=== PATIENT | male | born 2000 | race Caucasian/White ===

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

== ENCOUNTER 2021-03-29 16:53 | Observation (INO) | payer OTHER, SELFPAY ==
--- NOTE | ~2021-03-29 | CT_ITS ---
EXAMINATION: CT abdomen pelvis w con DATE: 03/29/2021 19:21 INDICATION: Right abdominal pain. Nausea and vomiting. Diarrhea. TECHNIQUE: Computed tomography (CT) of the abdomen and pelvis was performed with 100 mL Omnipaque 350 intravenous contrast. Automated exposure control and iterative reconstruction technique were employe d. The dose-length product was 190.28 mGy-cm. COMPARISON: CT abdomen and pelvis 09/12/2020, 03/29/2021 FINDINGS: The visualized portions of the lung bases are clear without pneumonia or pleural effusion. The heart size is normal. No pericardial effusion. The liver, gallbladder, spleen, pancreas, adrenal glands, and right kidney are normal. There is a 13 mm cyst in left kidney. There is a ventriculoperit phillip shunt with tip in right pelvis. There are no dilated loops of bowel. The appendix is not visual ized. There is a small volume of pelvic ascites. There are no pathologically enlarged lymph nodes. Th ere is mild chronic anterior wedging of T12 and L1 vertebral bodies. IMPRESSION: 1. Small volume of pelvic ascites. Reviewed, dictated and finalized at location E. UCT DEVELOPMENT CONSULTANT
--- NOTE | ~2021-03-29 | CT_ITS ---
EXAMINATION: CT abdomen pelvis wo con DATE: 03/29/2021 17:53 INDICATION: Right-sided abdominal pain with nausea and vomiting and diarrhea for 2 days TECHNIQUE: Computed tomography (CT) of the abdomen and pelvis was performed without intravenous contr ast. Automated exposure control and iterative reconstruction technique were employed. Exam dose: 206 .68 mGy-cm total exam DLP. COMPARISON: 09/12/2020 CT abdomen pelvis FINDINGS: The lung bases are clear. Normal heart size. No pericardial or pleural effusion. A ventriculoperitoneal shunt catheter courses along the right parasagittal anterior chest wall and ri ght anterior abdomen, terminating in the right pelvic area. The liver, spleen, pancreas, and adrenal glands and kidneys appear unremarkable other than approximat jona 1.4 cm left renal cyst. No bile duct or pancreatic duct dilatation. No urinary tract calculus or hydroureteronephrosis. Normal caliber of the abdominal aorta. No intraperitoneal or retroperitoneal or pelvic mass lesion or adenopathy. There is stable mild/moderate free fluid in the dependent pelvis, likely related to the shunt. There are small bowel air-fluid levels without abnormal small bowel dilatation thickening of the wall . No bowel obstruction or intraperitoneal free air is detected. Consider enteritis or adynamic ileus. The appendix is not definitively localized. No abscess is evident. Skeletal structures are unremarkable other than some changes of the thoracolumbar spine likely relate d to Scheuermann's disease. IMPRESSION: Nonspecific fluid-containing small bowel and small bowel air-fluid levels without obstru ction or free air; consider enteritis, adynamic ileus. The appendix is not definitively localized. Cl inical correlation is advised Ventriculoperitoneal shunt with stable mild to moderate fluid collection in the dependent pelvis 1.4 cm left renal cyst Reviewed, dictated and finalized at Location [facility]. Reviewed, dictated and finalized at location A. LOPMENT REPRESENTATIVE IMPRESSION: Nonspecific fluid-containing small bowel and small bowel air-fluid levels without obstruction or free air; consider enteritis, adynamic ileus. Th e appendix is not definitively localized. Clinical correlation is advised Ventriculoperitoneal shunt with stable mild to moderate fluid collection in the dependent pelvis 1.4 cm left renal cyst
[2021-03-29 17:30] VITALS: BP 106/77; PULSE 99; RESP 16; TEMP 36.6; O2SAT 99
--- NOTE | 2021-03-29 17:40 | ECG_ITS ---
Measurements Intervals Ewing Rate: 78 P: 61 GA: 96 QRS: 34 QRSD: 87 T: 55 QT: 379 QTc: 433 Interpretive Statements SINUS RHYTHM WITH SHORT GA INTERVAL MINIMAL Q WAVES- ANTEROLAT/HIGH LAT LEADS BASELINE ARTIFACT- I, II, AVR, AVL, V1-V2, V4, V6 BORDERLINE ECG Electronically Signed On 03-29-2021 20:39:23 TELEVISION NEWS REPORTER by Andrew Mcdaniel D.O.
[2021-03-29] MEDS: ONDANSETRON INJ 4 MG/2 ML VIAL IV PUSH (18:00)
[2021-03-29 18:20] LABS: Hematocrit 48.2 % (40.0-54.0); Hemoglobin 16.9 g/dL (14.0-18.0); Mean Corpuscular HGB Conc 35.1 g/dL (32.0-36.0); Mean Corpuscular Hemoglobin 29.8 pg (27.0-31.0); Mean Platelet Volume 9.1 fl (8.7-11.0); Platelet Count Result 326 K/mm3 (150-420); Red Blood Count 5.67 M/mm3 (4.70-6.10); Red Cell Distribution Width 11.9 % (11.6-14.4)
[2021-03-29 18:40] LABS: Alanine Aminotransferase 24 U/L (16-63); Albumin Level 4.4 g/dL (3.4-5.0); Alkaline Phosphatase 111 U/L (46-116); Anion Gap 9 mmol/L (8-16); Aspartate Amino Transferase 12 U/L (15-37); Bilirubin,Total 0.5 mg/dL (0.00-1.00); Blood Urea Nitrogen 17 mg/dL (7-18); Carbon Dioxide 31 mmol/L (21-32); Chloride 100 mmol/L (98-108); Estimated CRCL calculation 77 ml/min; Estimated Glomerular Filt Rate > 60; Glucose 98 mg/dL (70-99); Lipase 51 U/L (73-393); Osmolality Calculated 291 mOsm/kg (285-295); Potassium 3.5 mmol/L (3.5-5.1); Sodium 140 mmol/L (136-145)
--- NOTE | 2021-03-29 18:52 | ED.ABDPAIN ---
HPI - Abdominal Pain General Chief Complaint: Abdominal Pain Stated Complaint: vomiting,fatigue,loss of appitite,rt side pain Time Seen by Provider: 03/29/21 17:52 Source: patient Mode of arrival: ambulatory Limitations: no limitations History of Present Illness MD elicited complaint: abdominal pain Pertinent past history: none Onset (ago): hour(s) Pain Consistency: intermittent Location: diffuse Severity: mild Quality: cramping and aching Radiation: none Migration to: no migration Exacerbating factors: vomiting Related Data Home Medications Medication Instructions Recorded Confirmed No Home Medications 03/29/21 03/29/21 Allergies Allergy/AdvReac Type Severity Reaction Status Date / Time No Known Allergies Allergy Verified 03/29/21 17:41 Review of Systems Review of Systems: All systems reviewed & are unremarkable except as noted in HPI and below PMFSH Past Medical History Medical History Hydrocephalus Surgical History Surgical History History of ventriculoperitoneal shunting Family History Family History Other No significant family history Social History Social History Smoking status: Never smoker Alcohol intake: never Substance use: never Gender identity (if verbalized by the patient): Male Exam Const: General: no acute distress and alert Orientation/consciousness: patient oriented x3 HENMT: Head: normal to inspection Eyes: Conjunctivae: conjunctivae normal Pupils: Equal, round and reactive pupils present Neck: Neck: normal visual inspection, no lymphadenopathy and no meningeal signs Chest: Chest palpation & inspection: normal inspection of the chest Resp: Effort & Inspection: normal respiratory effort Cardio: Rate: regular rate Rhythm: regular rhythm GI: GI Palp: Yes Soft to palpation and Yes Tenderness to palpation present (GI) Percussion: Yes normal to percussion Urinary Catheter: Urinary Catheter: patent and draining Skin: General skin exam: normal color Rashes: no rashes Neuro: General: patient oriented x3 Extrem: General: normal to inspection and no pedal edema Psych: Mental Status: mental status grossly normal Affect: normal affect Course Course Emergency Course: CT scan reviewed and ordered CT scan abdomen pelvis with contrast patient receiving IV fluids Vital Signs Vital signs: Vital Signs Temperature 36.6 C 03/29/21 17:30 Pulse Rate 99 03/29/21 17:30 Respiratory Rate 16 03/29/21 17:30 Blood Pressure 106/77 03/29/21 17:30 Pulse Oximetry 99 03/29/21 17:30 Temperature 36.6 C 03/29/21 17:30 Pulse Rate 99 03/29/21 17:30 Respiratory Rate 16 03/29/21 17:30 Blood Pressure 106/77 03/29/21 17:30 Pulse Oximetry 99 03/29/21 17:30 MDM - Abdominal Pain Lab Data Result diagrams: 03/29/21 18:09 03/29/21 18:09 Labs: Lab Results 03/29/21 03/29/21 03/29/21 Range/Units 18:09 18:09 18:09 WBC 7.0 (4.8-10.8) K/mm3 RBC 5.67 (4.70-6.10) M/mm3 Hgb 16.9 (14.0-18.0) g/dL Hct 48.2 (40.0-54.0) % MCV 85.0 (78.0-102.0) fL MCH 29.8 (27.0-31.0) pg MCHC 35.1 (32.0-36.0) g/dL RDW 11.9 (11.6-14.4) % Plt Count 326 (150-420) K/mm3 MPV 9.1 (8.7-11.0) fl Immature Gran % (Auto) Not Reportable Neut % (Auto) Not Reportable Lymph % (Auto) Not Reportable [place] % (Auto) Not Reportable Eos % (Auto) Not Reportable Baso % (Auto) Not Reportable Lymph # (Auto) Not Reportable [place] # (Auto) Not Reportable Eos # (Auto) Not Reportable Baso # (Auto) Not Reportable Abs Immat Gran (auto) Not Reportable Absolute Neuts (auto) Not Reportable Absolute Nucleated RBC Not Reportable Nucl
[2021-03-29 19:15] LABS: Band Neutrophils Percent 0 % (0-6); Lymphocytes Absolute Manual 1.47 K/mm3 (1.1-4.5); Lymphocytes Percent Manual 21 % (18-44); Monocytes Absolute Manual 1.33 K/mm3 (0.1-0.90); Monocytes Percent Manual 19 % (3-9); Neutrophils Absolute Manual 4.13 K/mm3 (1.3-6.7); Neutrophils Percent Manual 59 % (46-73)
[2021-03-29 19:16] LABS: Basophils Percent Manual 0 % (0-1); Eosinophils Absolute Manual 0.07 K/mm3 (0.02-0.5); Eosinophils Percent Manual 1 % (1-6); Platelet Estimate Adequate (Adequate)
[2021-03-29] MEDS: MORPHINE SULFATE (*CRX) 2 MG/ML INJ IV PUSH (19:25)
[2021-03-29] MEDS: CIPROFLOXACIN 400 MG/D5W 200ML 200 ML 200 MG IVPB (20:16)
--- NOTE | 2021-03-29 20:42 | PC.NURSE ---
patient's belongings list updated.
[2021-03-29] MEDS: metroNIDAZOLE 500 MG/ISO 100ML 500 MG/100 ML BAG 100 MG IVPB (20:50)
[2021-03-29] MEDS: SODIUM CHLORIDE 0.9% IV 1,000 ML 100 ML IV CONT (22:12)
--- NOTE | 2021-03-29 23:45 | ADMGEN ---
This patient, Zaki Byrd, was admitted to 2nd Floor Room 227-2. Patient/family oriented to hospital policies and general routines including ID bracelet, bed and alarms, pain management, procedures, bathroom and other care routines, personal items, smoking policy, room service/diet, and visiting hours. Information on how to activate the Rapid Response Team has been discussed. Patient/Family are encouraged to report perceived risks to care and to ask questions if they do not understand what they are told or what they should do.
[2021-03-29 23:48] VITALS: BMI 15.9
[2021-03-30] VITALS: BP 115/64; PULSE 65; RESP 18; TEMP 36.7; O2SAT 98
[2021-03-30] MEDS: METOCLOPRAMIDE HCL INJ 10 MG/2 ML VIAL 5 MG IV PUSH ×2 (00:14→06:46)
[2021-03-30] MEDS: MORPHINE SULFATE (*CRX) 2 MG/ML INJ IV PUSH (04:36)
[2021-03-30 05:14] LABS: Hematocrit 41.9 % (40.0-54.0); Hemoglobin 14.4 g/dL (14.0-18.0); Mean Corpuscular HGB Conc 34.4 g/dL (32.0-36.0); Mean Corpuscular Hemoglobin 29.3 pg (27.0-31.0); Mean Corpuscular Volume 85.2 fL (78.0-102.0); Mean Platelet Volume 9.6 fl (8.7-11.0); Platelet Count Result 280 K/mm3 (150-420); Red Blood Count 4.92 M/mm3 (4.70-6.10); Red Cell Distribution Width 11.9 % (11.6-14.4); White Blood Count 7.3 K/mm3 (4.8-10.8)
[2021-03-30 05:34] LABS: Alanine Aminotransferase 19 U/L (16-63); Albumin Level 3.6 g/dL (3.4-5.0); Alkaline Phosphatase 89 U/L (46-116); Anion Gap 9 mmol/L (8-16); Aspartate Amino Transferase < 10 U/L (15-37); Bilirubin,Total 0.4 mg/dL (0.00-1.00); Blood Urea Nitrogen 15 mg/dL (7-18); CRP < 0.5 mg/dL (0.0-0.9); Calcium 8.5 mg/dL (8.5-10.1); Carbon Dioxide 29 mmol/L (21-32); Chloride 105 mmol/L (98-108); Estimated CRCL calculation 76 ml/min; Estimated Glomerular Filt Rate > 60; Glucose 93 mg/dL (70-99); Magnesium 1.9 mg/dL (1.8-2.4); Osmolality Calculated 296 mOsm/kg (285-295); Potassium 3.3 mmol/L (3.5-5.1); Sodium 143 mmol/L (136-145); Total Protein 6.7 g/dL (6.4-8.2)
--- NOTE | 2021-03-30 06:56 | PM.SD2 ---
Same Day Admit/Disch: HPI History of Present Illness Chief complaint: Enteritis, Abd pain Narrative: Zaki Byrd is a 21 year old male that presented to our emergency department with plaints of nausea vomiting and diarrhea. He has a history of History of ventriculoperitoneal shunting and hydrocephalus. According to patient 2 days ago he developed nausea vomiting and diarrhea and notes that he looked on the Internet and thought that his symptoms matched appendicitis. Patient notes that the only thing he did was drink soda relieve his symptoms. Vital signs 113/70, 100, 16, 97.7, 100% on room air, WBC 7.0, hemoglobin 16.9, hematocrit 48.2, platelets 326, sodium 140, potassium 3.5, BUN 17, creatinine 1.00, glucose 98, lactic acid 1.0, magnesium 1.9, AST 12, ALT 24, CRP within normal limits,Ventriculoperitoneal shunt with stable mild to moderate fluid collection in the dependent pelvis, 1.4 cm left renal cyst and Nonspecific fluid-containing small bowel and small bowel air-fluid levels without obstruction or free air patient was admitted for enteritis. Patient denies any recent antibiotic use and his diarrhea has subsided he will discharge home today with antibiotic with the Flagyl , Imodium and Zofran. The patient denies SOB, CP, palpitation, extremity numbness, lightheadedness, dizziness, constipation, diarrhea, chills, or fever. PMFSH Past Medical History Medical History Hydrocephalus Surgical History Surgical History History of ventriculoperitoneal shunting Family History Family History Other No significant family history Social History Social History Smoking status: Never smoker Second hand tobacco smoke exposure: No Alcohol intake: never Substance use: never Substance use type: does not use Gender identity (if verbalized by the patient): Male Spiritual care concerns: No Same Day Admit/Disch: Med Pre-admit Medications Home Medications Medication Instructions Recorded Confirmed Type No Home Medications 03/29/21 03/29/21 History ciprofloxacin HCl [Cipro] 500 mg PO Q12H 7 Days #14 tablet 03/29/21 Rx loperamide [Imodium A-D] 2 mg PO Q6H PRN #30 tablet 03/29/21 Rx metoclopramide HCl [Reglan] 5 mg PO DAILY 28 Days #28 tablet 03/29/21 Rx metronidazole 500 mg PO Q12H 7 Days #14 tablet 03/29/21 Rx ondansetron HCl 4 mg PO Q6H PRN #30 tablet 03/29/21 Rx Exam Narrative: GENERAL: This is a well-nourished, well-developed patient, in no apparent distress. HEAD: normocephalic, atraumatic. EYES: PERRL. Sclera clear/white. Vision is grossly intact. EARS: External ears normal, auditory canals clear and without drainage, TMs normal without perforation. Hearing grossly intact. NOSE: External nose normal with no obvious nasal discharge, nares without redness, no rhinorrhea. THROAT: Mucous membranes moist, posterior pharynx clear. NECK: Neck supple, non-tender without lymphadenopathy, masses or thyromegaly. CARDIOVASCULAR: Regular rate and rhythm without murmurs, gallops, or rubs. RESPIRATORY: Clear to auscultation. Breath sounds equal bilaterally. No wheezes, rales, or rhonchi. GASTROINTESTINAL: Abdomen soft, generalized tender, nondistended. Bowel sounds are active. No hepato-splenomegaly, or palpable masses. No guarding. SKIN: warm, intact with no suspicious lesions or rash, good texture and turgor. NEURO: awake, alert, and oriented to person, place and time. There were no obvious focal neurologic abnormalities. Steady gait EXTREMITIES: Normal range of motion. No edema. No calf tenderness. Negative Homans sign bilaterally. BACK: Nontender without deformity or crepitance. No flank tenderness. DS: Data Data Completed and Pending Labs on day of discharge: Labs from last 24 hours 03/30/21 02
[2021-03-30 08:00] VITALS: BP 113/70; PULSE 100; RESP 16; TEMP 36.5; O2SAT 100
[2021-03-30] MEDS: SODIUM CHLORIDE 0.9% IV 1,000 ML 100 ML IV CONT (08:31)
[2021-03-30] MEDS: metroNIDAZOLE 500 MG/ISO 100ML 500 MG/100 ML BAG 100 MG IVPB (09:12)
[2021-03-30] MEDS: PANTOPRAZOLE SODIUM IV 40 MG VIAL IV PUSH (09:16)
--- NOTE | 2021-03-30 10:55 | PC.NURSE ---
Patient discharged and left [facility] at 1055. Tripe Cooker went over discharge instructions with patient. Patient voiced understanding. All personal belongings sent with patient. Patient transported to [facility] via w/c with music writer assist. Prescriptions transmitted to pharmacy and patient aware of need to pick them up.
--- NOTE | 2021-04-02 15:37 | PC.NURSE ---
Pt states he received and understood his discharge instructions. Pt also states His care was excellent .
== END 2021-03-30 10:55 | disposition home or self-care (01) ==
LOC: CHSED 19:38 → CHS2ND 21:03
PROVIDERS: Nurse Practitioner; Admitting Provider Emergency Medicine; Emergency Provider Emergency Medicine; PCP Family Medicine; Visit Provider Emergency Medicine
DX: K52.9 Noninfective gastroenteritis and colitis, unspecified (principal); E87.6 Hypokalemia; G91.9 Hydrocephalus, unspecified; N28.1 Cyst of kidney, acquired; Z98.2 Presence of cerebrospinal fluid drainage device
CPT/HCPCS: 36415; 74176; 74177; 80053; 83605; 83690; 83735; 85025; 85027; 86140; 93005; 96361; 96365; 96366; 96367; 96375; 96376; 99285; C9113; G0378; G0379; J0744; J2270; J2405; J2765; J7030; Q9967

== ENCOUNTER 2021-04-06 09:45 | Outpatient (CLI) | payer OTHER, SELFPAY ==
[2021-04-06 10:16] LABS: SARS-CoV-2 Ag Negative (Negative)
== END 2021-04-06 09:46 | disposition home or self-care (01) ==
LOC: CHSLAB 09:47
PROVIDERS: PCP Family Medicine; Visit Provider Family Medicine
DX: R05.9 Cough, unspecified (principal); R19.7 Diarrhea, unspecified; Z20.822 Contact with and (suspected) exposure to COVID-19
CPT/HCPCS: 87426; C9803

== ENCOUNTER 2021-05-02 09:30 | Emergency (ER) | payer OTHER, SELFPAY ==
--- NOTE | ~2021-05-02 | XR_ITS ---
EXAMINATION: XR chest 1V portable 05/02/2021 09:55 INDICATION: Chest pain PROCEDURE: AP portable chest COMPARISON: 05/15/2020 FINDINGS: The lungs are clear. The cardiomediastinal silhouette is within normal limits. There are no pleural effusions. There is no pneumothorax suspected. There is a right-sided ventriculoperitone al shunt. IMPRESSION: 1: NO ACUTE CARDIOPULMONARY DISEASE. Reviewed, dictated and finalized at location B.
[2021-05-02 09:30] VITALS: BP 118/66; PULSE 109; RESP 18; TEMP 36.2; O2SAT 97
[2021-05-02 09:35] VITALS: PULSE 109
--- NOTE | 2021-05-02 09:38 | ED.CHESTPAIN ---
HPI - Chest Pain General Chief Complaint: Chest Pain Stated Complaint: chest pain, stomach acid in throat Time Seen by Provider: 05/02/21 09:43 History of Present Illness HPI narrative: 21-year-old male with a prior history of hydrocephalus status post STUDENT LIAISON OFFICER shunt, gastritis / gastroesophageal reflux disease presents to the ER with a 1 hour history of -- anterior chest pain. -- His symptoms are similar to his prior episode of gastritis/gastroesophageal reflux disease with reflux symptoms. No fever. No cough, sputum production or shortness of breath. MD complaint: chest pain Onset (ago): hour(s) ( Started 1 hours ago.) Prior episodes: Yes Onset: during rest Pain location: substernal Pain radiation: neck and jaw/teeth Severity: mild Pain scale (0-10): 8 Quality: aching Relieving factors: nothing Exacerbating factors: nothing Treatment prior to arrival: none Risk Factors Coronary artery disease risk factors: none Thoracic aortic dissection risk factors: Marfan's syndrome ( Appears marfanoid) Related Data Allergies Allergy/AdvReac Type Severity Reaction Status Date / Time No Known Allergies Allergy Verified 05/02/21 09:43 Review of Systems Review of Systems: All systems reviewed & are unremarkable except as noted in HPI and below Constitutional: Constitutional: Reports as per HPI and Reports no additional constitutional complaints Eyes: Eyes: Reports as per HPI and Reports no additional eye complaints ENT: Reports system reviewed and no additional complaints, except as documented Cardiovascular: Cardiovascular: Reports as per HPI, Reports chest pain and Reports radiating jaw, neck or arm pain Respiratory: Respiratory: Reports as per HPI and Reports no additional respiratory complaints Genitourinary: Genitourinary: Reports no additional male genitourinary complaints Musculoskeletal: Musculoskeletal: Reports no additional musculoskeletal complaints Integumentary/Breasts: Skin/Breast: Reports system reviewed and no additional complaints, except as docu Neurologic: Reports system reviewed and no additional complaints, except as documented Psychiatric: Psychiatric: Reports no additional psychiatric complaints and Reports as per HPI Endocrine: Endocrine: Reports no additional endocrine complaints and Reports as per HPI Hematologic/Lymphatic: Hematologic/Lymphatic: Reports no additional hematologic/lymphatic complaints and Reports as per HPI Allergic/Immunologic: Allergic/Immunologic: Reports no additional allergic/immunologic complaints and Reports as per HPI [facility] Past Medical History Medical History Hydrocephalus Surgical History Surgical History History of ventriculoperitoneal shunting Family History Family History Other No significant family history Social History Social History Smoking status: Never smoker Second hand tobacco smoke exposure: No Alcohol intake: never Substance use: never Substance use type: does not use Gender identity (if verbalized by the patient): Male Spiritual care concerns: No Exam Const: General: no acute distress and alert Orientation/consciousness: patient oriented x3 HENMT: Head: normal to inspection Eyes: Conjunctivae: conjunctivae normal Pupils: Equal, round and reactive pupils present Neck: Neck: normal visual inspection and no lymphadenopathy Chest: Chest palpation & inspection: normal inspection of the chest Resp: Effort & Inspection: normal respiratory effort Auscultation: clear to auscultation bilaterally Cardio: Rate: regular rate Rhythm: regular rhythm GI: Inspection: distended GI Palp: Yes Soft to palpation : Testes: Testes normal Back/Spine/Pelvis: Back: no CVA tenderness Skin: General skin exam: normal
--- NOTE | 2021-05-02 09:39 | ECG_ITS ---
Measurements Intervals [place] Rate: 89 P: 85 [place]: 114 QRS: 76 QRSD: 94 T: 67 QT: 329 QTc: 401 Interpretive Statements SINUS RHYTHM WITH MARKED SINUS ARRHYTHMIA WITH SHORT [place] INTERVAL COMPARED TO ECG 03/29/2021 18:16:44 SINUS ARRHYTHMIA NOW PRESENT Electronically Signed On 05-02-2021 13:16:18 CDT by Brenda Bullock M.D.
[2021-05-02 10:04] LABS: Basophils Absolute Auto 0.03 K/mm3 (0.00-0.10); Basophils Percent Auto 0.5 % (0.0-1.0); Eosinophils Absolute Auto 0.16 K/mm3 (0.02-0.50); Eosinophils Percent Auto 2.5 % (1.0-6.0); Hemoglobin 17.3 g/dL (14.0-18.0); Immature Granulocyte Absolute 0.01 K/mm3 (0.00-0.00); Immature Granulocyte Percent A 0.2 % (0.0-0.0); Lymphocytes Absolute Auto 2.46 K/mm3 (1.10-4.50); Lymphocytes Percent Auto 38.3 % (18.0-42.0); Mean Corpuscular HGB Conc 33.9 g/dL (32.0-36.0); Mean Corpuscular Hemoglobin 29.3 pg (27.0-31.0); Mean Corpuscular Volume 86.4 fL (78.0-102.0); Mean Platelet Volume 8.9 fl (8.7-11.0); Monocytes Absolute Auto 0.64 K/mm3 (0.10-0.90); Neutrophils Absolute Auto 3.1 K/mm3 (1.7-7.2); Neutrophils Percent Auto 48.5 % (50.0-70.0); Platelet Count Result 352 K/mm3 (150-420); Red Cell Distribution Width 11.9 % (11.6-14.4); White Blood Count 6.4 K/mm3 (4.8-10.8)
[2021-05-02 10:16] LABS: D Dimer 0.24 mg/L (0.19-0.50); INR 1.1; Prothrombin Time 11.4 Seconds (9.50-12.10)
[2021-05-02 10:20] LABS: Alanine Aminotransferase 24 U/L (16-63); Albumin Level 4.6 g/dL (3.4-5.0); Alkaline Phosphatase 117 U/L (46-116); Anion Gap 10 mmol/L (8-16); Aspartate Amino Transferase 14 U/L (15-37); Bilirubin,Total 0.7 mg/dL (0.00-1.00); Blood Urea Nitrogen 9 mg/dL (7-18); Calcium 9.6 mg/dL (8.5-10.1); Carbon Dioxide 29 mmol/L (21-32); Chloride 102 mmol/L (98-108); Estimated CRCL calculation 78 ml/min; Estimated Glomerular Filt Rate > 60; Glucose 124 mg/dL (70-99); Lipase 54 U/L (73-393); Osmolality Calculated 291 mOsm/kg (285-295); Potassium 3.4 mmol/L (3.5-5.1); Sodium 141 mmol/L (136-145); Total Protein 8.3 g/dL (6.4-8.2); Troponin I 5.1 ng/L (0.00-60.4)
[2021-05-02] MEDS: ONDANSETRON INJ 4 MG/2 ML VIAL IV PUSH (10:23)
[2021-05-02] MEDS: MORPHINE SULFATE (*CRX) 2 MG/ML INJ IV PUSH (10:24)
[2021-05-02 11:21] VITALS: BP 107/80; PULSE 97; RESP 18; TEMP 36.8; O2SAT 99
[2021-05-02] MEDS: POTASSIUM CHLORIDE 20 MEQ TABLET PO (11:27)
== END 2021-05-02 11:30 | disposition home or self-care (01) ==
PROVIDERS: Emergency Provider Internal Medicine Critical Care Medicine; PCP Family Medicine
DX: R07.9 Chest pain, unspecified (principal); K21.00 Gastro-esophageal reflux disease with esophagitis, without bleeding
CPT/HCPCS: 36415; 71045; 80053; 83690; 84484; 85025; 85380; 85610; 93005; 96374; 96375; 99284; A9270; J2270; J2405

== ENCOUNTER 2021-06-27 00:35 | Day surgery (SDC) | payer OTHER, SELFPAY ==
[2021-06-11 12:27] VITALS: BMI 15.5
[2021-06-27 10:57] VITALS: BP 110/62; PULSE 107; RESP 18; TEMP 37; O2SAT 100
[2021-06-27] MEDS: LACTATED RINGERS 1,000 ML 150 ML IV CONT (11:02)
--- NOTE | 2021-06-27 11:47 | P.PNAN_ITS ---
Anes - Initial Pre Proc Eval Procedure: Operation Date: 06/27/21 12:30 Proposed Procedures p Esophagogastroduodenoscopy - Viral Vallecillo MD Date/Time: 06/27/21 11:47 Surgeon: Viral Vallecillo MD Pre Op Diagnosis: epigastric pain Patient Data Age: 21 Gender: M Height: 1.83 m Weight: 52.6 kg Last Vital Signs Temp 98.6 F 06/27/21 10:57 Pulse 107 H 06/27/21 10:57 Resp 18 06/27/21 10:57 BP 110/62 06/27/21 10:57 Pulse Ox 100 06/27/21 10:57 Allergies Allergy/AdvReac Type Severity Reaction Status Date / Time No Known Allergies Allergy Verified 06/27/21 10:56 Home Medications Medication Instructions Recorded Confirmed Type omeprazole 40 mg PO DAILY #30 cap 05/02/21 06/27/21 Rx Patient hx anesthesia problems: none Family hx anesthesia problems: none Results Review: All pre-operative results and documents have been reviewed as part of the pre-operative evaluation. [facility] Past Medical History Medical History Hydrocephalus Surgical History Surgical History History of ventriculoperitoneal shunting Family History Family History Other No significant family history Social History Social History Smoking status: Never smoker Second hand tobacco smoke exposure: No Alcohol intake: never Substance use: never Substance use type: does not use Living arrangements: with family Gender identity (if verbalized by the patient): Male Spiritual care concerns: No Anes - Eval Final PreProcedure Day of Procedure 06/27/21 11:47 Patient weight: normal Heart: regular rate and rhythm Lungs: clear to auscultation Airway: Mallampati scale class II Neurological: alert and oriented Last oral intake: >/= 8 hours ASA classification: II Emergent: no Anesthetic plan: proceed Anesthesia type and monitoring: general GIVS and standard monitoring Results Review: All pre-operative results and documents have been reviewed as part of the pre-operative evaluation. Informed Consent: The patient's anesthetic plan and its attendant risks and benefits were discussed with the patient/family/POA. Questions were solicited and answers provided to the satisfaction of the patient/family/POA.
--- NOTE | 2021-06-27 11:51 | WPDANESEPPF ---
Anes - Initial Pre Proc Eval Procedure: Operation Date: 06/27/21 12:30 Proposed Procedures p Esophagogastroduodenoscopy - Viral Vallecillo MD Date/Time: 06/27/21 11:51 Surgeon: Viral Vallecillo MD Pre Op Diagnosis: epigastric pain Patient Data Age: 21 Gender: M Height: 1.83 m Weight: 52.6 kg Last Vital Signs Temp 98.6 F 06/27/21 10:57 Pulse 107 H 06/27/21 10:57 Resp 18 06/27/21 10:57 BP 110/62 06/27/21 10:57 Pulse Ox 100 06/27/21 10:57 Allergies Allergy/AdvReac Type Severity Reaction Status Date / Time No Known Allergies Allergy Verified 06/27/21 10:56 Home Medications Medication Instructions Recorded Confirmed Type omeprazole 40 mg PO DAILY #30 cap 05/02/21 06/27/21 Rx Patient hx anesthesia problems: none Family hx anesthesia problems: none Results Review: All pre-operative results and documents have been reviewed as part of the pre-operative evaluation. [facility] Past Medical History Medical History Hydrocephalus Surgical History Surgical History History of ventriculoperitoneal shunting Family History Family History Other No significant family history Social History Social History Smoking status: Never smoker Second hand tobacco smoke exposure: No Alcohol intake: never Substance use: never Substance use type: does not use Living arrangements: with family Gender identity (if verbalized by the patient): Male Spiritual care concerns: No Anes - Eval Final PreProcedure Day of Procedure 06/27/21 11:51 Patient weight: normal Heart: regular rate and rhythm Lungs: clear to auscultation Airway: Mallampati scale class II Neurological: alert and oriented Last oral intake: >/= 8 hours ASA classification: II Emergent: no Anesthetic plan: proceed Anesthesia type and monitoring: general GIVS and standard monitoring Results Review: All pre-operative results and documents have been reviewed as part of the pre-operative evaluation. Informed Consent: The patient's anesthetic plan and its attendant risks and benefits were discussed with the patient/family/POA. Questions were solicited and answers provided to the satisfaction of the patient/family/POA.
--- NOTE | 2021-06-27 12:02 | PM.HPGS ---
History of Present Illness History of Present Illness Consent: Risks, benefits, and alternatives have been discussed and questions answered. Patient agrees to proceed with procedure. Chief complaint: epigastric pain Narrative: Zaki Byrd is a 21 year old male with epigastric pain, here for egd Review of Systems Constitutional: Constitutional: Denies headache(s) and Denies weakness Eyes: Eyes: Denies blurry vision ENT: Reports Normal hearing present, Denies headache(s) and Denies neck pain Cardiovascular: Cardiovascular: Denies chest pain and Denies dyspnea Respiratory: Respiratory: Denies dyspnea Gastrointestinal: Gastrointestinal: Reports no additional gastrointestinal complaints Genitourinary: Genitourinary: Denies dysuria Musculoskeletal: Musculoskeletal: Denies neck pain Integumentary/Breasts: Skin/Breast: Denies dry skin Neurologic: Reports Normal hearing present, Denies headache(s) and Denies weakness Psychiatric: Psychiatric: Denies anxiety Endocrine: Endocrine: Denies change in body appearance Hematologic/Lymphatic: Hematologic/Lymphatic: Denies easy bleeding Allergic/Immunologic: Allergic/Immunologic: Denies urticaria PMFSH Past Medical History Medical History (Updated 06/27/21 @ 12:02 by Viral Vallecillo MD) Epigastric pain Hydrocephalus Surgical History Surgical History History of ventriculoperitoneal shunting Family History Family History Other No significant family history Social History Social History Smoking status: Never smoker Second hand tobacco smoke exposure: No Alcohol intake: never Substance use: never Substance use type: does not use Living arrangements: with family Gender identity (if verbalized by the patient): Male Spiritual care concerns: No Meds Home Medications and Allergies Home Medications Medication Instructions Recorded Confirmed Type omeprazole 40 mg PO DAILY #30 cap 05/02/21 06/27/21 Rx Allergies Allergy/AdvReac Type Severity Reaction Status Date / Time No Known Allergies Allergy Verified 06/27/21 10:56 Vital Signs Vital Signs - 24 hr 06/27/21 10:57 Temperature 98.6 F Pulse Rate 107 H Respiratory Rate 18 Blood Pressure 110/62 Pulse Oximetry 100 Exam Const: General: comfortable and no acute distress HENMT: General nose exam: Normal nares present Eyes: General: appearance normal, both eyes and all related structures Neck: Neck: no JVD Resp: Auscultation: clear to auscultation bilaterally Cardio: Rate: regular rate Rhythm: regular rhythm GI: Inspection: non-distended GI Palp: Yes Soft to palpation Skin: General skin exam: normal color Neuro: General: gait normal Speech: normal speech Extrem: General: normal to inspection Psych: Mental Status: mental status grossly normal Assessment and Plan Assessment and plan (1) Epigastric pain: Code(s): R10.13 - Epigastric pain Status: Acute Assessment and Plan: egd with bx
[2021-06-27 12:15] VITALS: BP 89/48; PULSE 67; RESP 18; O2SAT 98
[2021-06-27 12:25] VITALS: BP 87/47; PULSE 66; RESP 18; O2SAT 98
[2021-06-27 12:35] VITALS: BP 92/51; PULSE 66; RESP 18; O2SAT 98
== END 2021-06-27 12:45 | disposition home or self-care (01) ==
PROVIDERS: PCP Family Medicine; Visit Provider Internal Medicine Gastroenterology
PROC: 0DJ08ZZ Inspection of Upper Intestinal Tract, Via Natural or Artificial Opening Endoscopic (ICD-10-PCS; CPT 43235; principal; 2021-06-27 12:30)
DX: R10.13 Epigastric pain (principal); R10.30 Lower abdominal pain, unspecified; K44.9 Diaphragmatic hernia without obstruction or gangrene; G91.9 Hydrocephalus, unspecified; Z98.2 Presence of cerebrospinal fluid drainage device
CPT/HCPCS: 43239; 88305; J2704; J7120

== ENCOUNTER 2021-08-13 10:23 | Outpatient (CLI) | payer OTHER, SELFPAY ==
[2021-08-13 10:37] LABS: Basophils Absolute Auto 0.04 K/mm3 (0.00-0.10); Basophils Percent Auto 0.6 % (0.0-1.0); Eosinophils Absolute Auto 0.24 K/mm3 (0.02-0.50); Eosinophils Percent Auto 3.5 % (1.0-6.0); Hematocrit 45.7 % (40.0-54.0); Hemoglobin 15.7 g/dL (14.0-18.0); Immature Granulocyte Absolute 0.01 K/mm3 (0.00-0.00); Immature Granulocyte Percent A 0.1 % (0.0-0.0); Lymphocytes Absolute Auto 3.05 K/mm3 (1.10-4.50); Lymphocytes Percent Auto 44.1 % (18.0-42.0); Mean Corpuscular HGB Conc 34.4 g/dL (32.0-36.0); Mean Corpuscular Hemoglobin 29.8 pg (27.0-31.0); Mean Corpuscular Volume 86.9 fL (78.0-102.0); Mean Platelet Volume 9.1 fl (8.7-11.0); Monocytes Absolute Auto 0.71 K/mm3 (0.10-0.90); Monocytes Percent Auto 10.3 % (2.0-11.0); Neutrophils Absolute Auto 2.9 K/mm3 (1.7-7.2); Neutrophils Percent Auto 41.4 % (50.0-70.0); Platelet Count Result 323 K/mm3 (150-420); Red Blood Count 5.26 M/mm3 (4.70-6.10); Red Cell Distribution Width 11.9 % (11.6-14.4); White Blood Count 6.9 K/mm3 (4.8-10.8)
[2021-08-13 10:38] LABS: Add Urine Microscopic? NO; Appearance Urine Clear (Clear); Bilirubin Urine Negative (Negative); Blood Urine Negative (Negative); Color Urine Yellow (Yellow); Glucose Urine UA Negative (Negative); Ketones Urine Negative (Negative); Leukocyte Esterase Ur Negative (Negative); Nitrate Urine Negative (Negative); Protein Urine Negative (Negative); Specific Grav Ur 1.025 (1.010-1.020)
--- NOTE | 2021-08-13 10:44 | ECG_ITS ---
Measurements Intervals [place] Rate: 59 P: 57 DE: 100 QRS: 57 QRSD: 97 T: 64 QT: 430 QTc: 426 Interpretive Statements SINUS BRADYCARDIA WITH SHORT DE INTERVAL MINIMAL VOLTAGE CRITERIA FOR LVH, CONSIDER NORMAL VARIANT [MEETS CRITERIA IN ONE OF: R(aVL), S(V1), R(V5), R(V5/V6)+S(V1)] COMPARED TO ECG 05/02/2021 09:45:10 HEART RATE IS REDUCED NO OTHER CHANGE Electronically Signed On 08-13-2021 15:43:10 CDT by Brendan Reese M.D.
[2021-08-13 11:01] LABS: Alanine Aminotransferase 22 U/L (16-63); Albumin Level 4.6 g/dL (3.4-5.0); Alkaline Phosphatase 112 U/L (46-116); Amylase 51 U/L (25-115); Anion Gap 7 mmol/L (8-16); Aspartate Amino Transferase 14 U/L (15-37); Bilirubin,Total 0.8 mg/dL (0.00-1.00); Blood Urea Nitrogen 12 mg/dL (7-18); Calcium 9.2 mg/dL (8.5-10.1); Carbon Dioxide 31 mmol/L (21-32); Chloride 104 mmol/L (98-108); Estimated Glomerular Filt Rate > 60; Glucose 96 mg/dL (70-99); Lipase 51 U/L (73-393); Osmolality Calculated 293 mOsm/kg (285-295); Potassium 4.1 mmol/L (3.5-5.1); Sodium 142 mmol/L (136-145); Total Protein 7.9 g/dL (6.4-8.2)
== END 2021-08-13 10:24 | disposition home or self-care (01) ==
LOC: CHSLAB 10:25
PROVIDERS: PCP Family Medicine; Visit Provider Family Medicine
DX: R10.84 Generalized abdominal pain (principal); R07.89 Other chest pain
CPT/HCPCS: 36415; 80053; 81003; 82150; 83690; 85025; 93005

== ENCOUNTER 2022-01-03 16:59 | Outpatient (CLI) | payer OTHER, SELFPAY ==
[2022-01-05 09:33] LABS: TB Skin Test Erythema 0 mm; TB Skin Test Induration 0 mm (0-10); TB Skin Test Interpretation Negative (Negative); TB Skin Test Site Right Arm
== END 2022-01-03 17:00 | disposition home or self-care (01) ==
LOC: CHSLAB 17:00
PROVIDERS: PCP Family Medicine; Visit Provider Family Medicine
DX: Z11.1 Encounter for screening for respiratory tuberculosis (principal)
CPT/HCPCS: 36415; 86580

== ENCOUNTER 2022-03-16 10:06 | Emergency (ER) | payer OTHER, SELFPAY ==
[2022-03-16 10:10] VITALS: BP 118/78; PULSE 89; RESP 16; TEMP 36.6; O2SAT 100
--- NOTE | 2022-03-16 10:22 | ED.EYEPROB ---
HPI - Eye Problem General Chief complaint: Eye Problems Stated complaint: right eye cat scratched and painful Time Seen by Provider: 03/16/22 10:19 Source: patient Mode of arrival: ambulatory Limitations: no limitations History of Present Illness HPI Narrative: 21-year-old male with a history of hydrocephalus status post LIVE AMMUNITION INSPECTOR shunt was playing with his cat last night when he sustained -- a scleral erosion at 6 O clock . position below the limbus. his vision is intact. -- increased mucopurulent discharge -- scratch vargas on his right hand MD chief complaint: eye pain and eye redness Onset (ago): hour(s) ( cat scratch of left eye 16 hours ago.) Onset description: sudden Location: left eye Eye Symptoms: burning, redness, pain and foreign body sensation Place: home Mechanism: direct trauma ( Catheterization scratched his left eye) Treatments Prior to Arrival: none Related Data Patient tetanus UTD: No Home Medications Medication Instructions Recorded Confirmed No Home Medications 03/16/22 03/16/22 Allergies Allergy/AdvReac Type Severity Reaction Status Date / Time No Known Allergies Allergy Verified 03/16/22 10:18 Review of Systems Review of Systems: All systems reviewed & are unremarkable except as noted in HPI and below Constitutional: Constitutional: Reports as per HPI and Reports no additional constitutional complaints Eyes: Eyes: Reports as per HPI and Reports photophobia ENT: Reports system reviewed and no additional complaints, except as documented and Reports as per HPI Cardiovascular: Cardiovascular: Reports as per HPI and Reports no additional cardiovascular complaints Respiratory: Respiratory: Reports as per HPI and Reports no additional respiratory complaints Gastrointestinal: Gastrointestinal: Reports as per HPI and Reports no additional gastrointestinal complaints Genitourinary: Genitourinary: Reports no additional male genitourinary complaints and Reports as per HPI Musculoskeletal: Musculoskeletal: Reports no additional musculoskeletal complaints and Reports as per HPI Integumentary/Breasts: Skin/Breast: Reports system reviewed and no additional complaints, except as docu and Reports as per HPI Comments: scratch vargas on his right hand Neurologic: Reports system reviewed and no additional complaints, except as documented and Reports as per HPI Psychiatric: Psychiatric: Reports no additional psychiatric complaints and Reports as per HPI Endocrine: Endocrine: Reports no additional endocrine complaints and Reports as per HPI Hematologic/Lymphatic: Hematologic/Lymphatic: Reports no additional hematologic/lymphatic complaints and Reports as per HPI Allergic/Immunologic: Allergic/Immunologic: Reports no additional allergic/immunologic complaints and Reports as per HPI PMFSH Past Medical History Medical History Epigastric pain Hydrocephalus Surgical History Surgical History History of ventriculoperitoneal shunting Family History Family History Other No significant family history Social History Social History Smoking status: Never smoker Second hand tobacco smoke exposure: No Alcohol intake: never Substance use: never Substance use type: does not use Living arrangements: with family Gender identity (if verbalized by the patient): Male Spiritual care concerns: No Exam Const: General: no acute distress Orientation/consciousness: patient oriented x3 Limitations: no limitations HENMT: Head: normal to inspection Ears: external ears normal Face/Nose/Sinus: Normal external nose present Face and sinus: normal facial exam Mouth: Yes Normal oral and palatal mucosa present Throat: posterior oropharynx normal Eyes: Conjunctivae: conjunctivae nor
[2022-03-16] MEDS: TETRACAINE HCL 0.5% OPHTH SOLN 4 ML BTL 1 DROP LEFT EYE (10:37)
[2022-03-16] MEDS: FLUORESCEIN SOD 1 MG/STRIP LEFT EYE (10:37)
[2022-03-16] MEDS: DACRIOSE EYE IRRIGATION 118 ML BOTTLE LEFT EYE (10:44)
[2022-03-16] MEDS: ERYTHROMYCIN OPHTH OINTMENT 3.5 GM TUBE 1 APPLIC LEFT EYE (11:20)
[2022-03-16 11:50] VITALS: BP 120/69; PULSE 80; RESP 18; TEMP 36.7; O2SAT 100
[2022-03-16 12:21] VITALS: BP 122/70; PULSE 90; RESP 18; TEMP 36.6; O2SAT 99
== END 2022-03-16 12:33 | disposition short-term general hospital (02) ==
PROVIDERS: Emergency Provider Internal Medicine Critical Care Medicine; PCP Family Medicine
DX: S05.02XA Injury of conjunctiva and corneal abrasion without foreign body, left eye, initial encounter (principal); W55.03XA Scratched by cat, initial encounter
CPT/HCPCS: 99283; A9270

== ENCOUNTER 2022-05-11 15:08 | Emergency (ER) | payer OTHER, SELFPAY ==
[2022-05-11 15:10] VITALS: BP 125/85; PULSE 92; RESP 20; TEMP 36.8; O2SAT 97
--- NOTE | 2022-05-11 15:24 | ED.EAR ---
HPI - Ear Problem General Chief complaint: Ear Stated complaint: left ear feeling full Source: patient Mode of arrival: ambulatory Limitations: no limitations History of Present Illness HPI Narrative: 22-year-old male with a history of hydrocephalus status post AUDIO VISUAL AIDE shunt with wax impaction presents to the ER with left ear fullness. No pain. No discharge. the patient tried cleaning it by himself but it did not work. Complaint: other ( Ear wax) Location: bilateral Severity: mild Relieving factors: nothing Exacerbating factors: nothing Discharge from ear: Reports no Related Data Allergies Allergy/AdvReac Type Severity Reaction Status Date / Time No Known Allergies Allergy Verified 03/16/22 10:18 Review of Systems Review of Systems: All systems reviewed & are unremarkable except as noted in HPI and below Constitutional: Constitutional: Reports as per HPI and Reports no additional constitutional complaints Eyes: Eyes: Reports as per HPI and Reports no additional eye complaints ENT: Comments: Bilateral ear fullness with decreased hearing Cardiovascular: Cardiovascular: Reports as per HPI and Reports no additional cardiovascular complaints Respiratory: Respiratory: Reports as per HPI and Reports no additional respiratory complaints Gastrointestinal: Gastrointestinal: Reports as per HPI and Reports no additional gastrointestinal complaints Musculoskeletal: Musculoskeletal: Reports no additional musculoskeletal complaints and Reports as per HPI Integumentary/Breasts: Skin/Breast: Reports system reviewed and no additional complaints, except as docu and Reports as per HPI Neurologic: Reports system reviewed and no additional complaints, except as documented and Reports as per HPI Psychiatric: Psychiatric: Reports no additional psychiatric complaints and Reports as per HPI Endocrine: Endocrine: Reports no additional endocrine complaints and Reports as per HPI Hematologic/Lymphatic: Hematologic/Lymphatic: Reports no additional hematologic/lymphatic complaints and Reports as per HPI Allergic/Immunologic: Allergic/Immunologic: Reports no additional allergic/immunologic complaints and Reports as per HPI PMFSH Past Medical History Medical History Epigastric pain Hydrocephalus Surgical History Surgical History History of ventriculoperitoneal shunting Family History Family History Other No significant family history Social History Social History Smoking status: Never smoker Second hand tobacco smoke exposure: No Alcohol intake: never Substance use: never Substance use type: does not use Living arrangements: with family Gender identity (if verbalized by the patient): Male Spiritual care concerns: No Exam Const: General: healthy appearing and no acute distress Orientation/consciousness: patient oriented x3 Limitations: no limitations HENMT: Head: normal to inspection Ears: external ears normal and EAC's normal ( bilateral wax impaction.) Face/Nose/Sinus: Normal external nose present Face and sinus: normal facial exam Mouth: Yes Normal oral and palatal mucosa present Throat: posterior oropharynx normal Eyes: Conjunctivae: conjunctivae normal Pupils: Equal, round and reactive pupils present EOM: EOMs intact bilaterally Direct Ophthalmoscopy: no photophobia Neck: Neck: normal visual inspection, no lymphadenopathy and no meningeal signs Chest: Chest palpation & inspection: normal inspection of the chest Resp: Auscultation: clear to auscultation bilaterally Cardio: Rate: regular rate Rhythm: regular rhythm GI: GI Palp: Yes Soft to palpation Auscultation: normal bowel sounds Back/Spine/Pelvis: Back: no CVA tenderness Skin: General skin exam: normal colo
== END 2022-05-11 15:51 | disposition home or self-care (01) ==
PROVIDERS: Emergency Provider Internal Medicine Critical Care Medicine; PCP Family Medicine
DX: H61.22 Impacted cerumen, left ear (principal)
CPT/HCPCS: 69210; 99282

== ENCOUNTER 2022-06-03 17:42 | Emergency (ER) | payer OTHER, SELFPAY ==
--- NOTE | ~2022-06-03 | CT_ITS ---
EXAMINATION: CT abdomen pelvis w con DATE: 06/03/2022 19:41 INDICATION: Periumbilical and left flank pain TECHNIQUE: Computed tomography (CT) of the abdomen and pelvis was performed without intravenous contr ast. The dose-length product was 183.81 mGy-cm. Automated exposure control and iterative reconstructi on technique were employed. COMPARISON: CT dated 03/29/2021. FINDINGS: Lung bases are unremarkable. Heart size is normal. No significant pleural or pericardial ef fusion. There is a right-sided ventriculoperitoneal shunt with the inferior tip in the pelvis. Small amount of free fluid in the pelvis. The liver, spleen, pancreas, adrenal glands and right kidney are unremarkable. There is a 1.5 cm left renal cyst. No significant vascular abnormality. No lymphadenopathy. There are air-fluid levels thro ughout the small bowel, likely ileus. No definite obstruction. No acute osseous abnormality. There is chronic wedge shaped appearance to T12 and L1. IMPRESSION: 1. Mildly distended small bowel loops with air-fluid levels, most likely ileus. 2: Right sided ventriculoperitoneal shunt with small amount of ascites. Reviewed, dictated and finalized at location A.
[2022-06-03 17:42] VITALS: BP 117/72; PULSE 85; RESP 18; TEMP 36.7; O2SAT 100
[2022-06-03 18:50] LABS: Basophils Absolute Auto 0.06 K/mm3 (0.00-0.10); Basophils Percent Auto 0.6 % (0.0-1.0); Eosinophils Absolute Auto 0.14 K/mm3 (0.02-0.50); Eosinophils Percent Auto 1.5 % (1.0-6.0); Hematocrit 42.7 % (40.0-54.0); Hemoglobin 14.7 g/dL (14.0-18.0); Immature Granulocyte Absolute 0.04 K/mm3 (0.00-0.00); Immature Granulocyte Percent A 0.4 % (0.0-0.0); Lymphocytes Absolute Auto 2.85 K/mm3 (1.10-4.50); Lymphocytes Percent Auto 30.5 % (18.0-42.0); Mean Corpuscular HGB Conc 34.4 g/dL (32.0-36.0); Mean Corpuscular Hemoglobin 29.3 pg (27.0-31.0); Mean Corpuscular Volume 85.1 fL (78.0-102.0); Monocytes Absolute Auto 0.98 K/mm3 (0.10-0.90); Monocytes Percent Auto 10.5 % (2.0-11.0); Neutrophils Absolute Auto 5.3 K/mm3 (1.7-7.2); Neutrophils Percent Auto 56.5 % (50.0-70.0); Platelet Count Result 331 K/mm3 (150-420); Red Blood Count 5.02 M/mm3 (4.70-6.10); Red Cell Distribution Width 12.1 % (11.6-14.4); White Blood Count 9.3 K/mm3 (4.8-10.8)
[2022-06-03 18:52] LABS: Appearance Urine Clear (Clear); Bilirubin Urine Negative (Negative); Blood Urine Negative (Negative); Color Urine Light Yellow (Yellow); Glucose Urine UA Negative (Negative); Ketones Urine Trace (Negative); Leukocyte Esterase Ur Negative LEU/UL (Negative); Nitrate Urine Negative (Negative); Protein Urine Negative (Negative); Urobilinogen Urine 0.2 mg/dL (0.2-1.0); pH Urine 8.5 (5.0-8.0)
[2022-06-03 18:58] LABS: Add Urine Microscopic? YES; Bacteria Urine Trace /hpf; RBC Urine 0-2 /hpf (0-2); WBC Urine 0-3 /hpf (0-3)
[2022-06-03 19:06] LABS: Alanine Aminotransferase 26 U/L (16-63); Albumin Level 4.2 g/dL (3.4-5.0); Alkaline Phosphatase 93 U/L (46-116); Amylase 50 U/L (25-115); Anion Gap 9 mmol/L (8-16); Aspartate Amino Transferase 14 U/L (15-37); Bilirubin,Total 0.5 mg/dL (0.00-1.00); Blood Urea Nitrogen 9 mg/dL (7-18); Calcium 8.7 mg/dL (8.5-10.1); Carbon Dioxide 29 mmol/L (21-32); Chloride 104 mmol/L (98-108); Estimated CRCL calculation 96 ml/min; Estimated Glomerular Filt Rate > 60; Glucose 95 mg/dL (70-99); Lipase 39 U/L (16-77); Osmolality Calculated 292 mOsm/kg (285-295); Potassium 3.6 mmol/L (3.5-5.1); Sodium 142 mmol/L (136-145); Total Protein 7.7 g/dL (6.4-8.2)
[2022-06-03] MEDS: SODIUM CHLORIDE 0.9% IV 1,000 ML 999 ML IV CONT (19:09)
[2022-06-03] MEDS: ONDANSETRON INJ 4 MG/2 ML VIAL IV PUSH (19:10)
[2022-06-03] MEDS: METOCLOPRAMIDE HCL INJ 10 MG/2 ML VIAL IV PUSH (19:10)
[2022-06-03] MEDS: KETOROLAC 30 MG/ML VIAL (*BKC) 25 MG IV PUSH (19:11)
[2022-06-03] MEDS: diphenhydrAMINE HCl INJ 50 MG/ML VIAL 25 MG IV PUSH (19:12)
[2022-06-03] MEDS: BENZONATATE 100 MG CAPSULE PO (19:13)
--- NOTE | 2022-06-03 19:13 | ED.GENADULT ---
HPI - General Adult General Chief complaint: Abdominal Pain Stated complaint: abdominal pain Time Seen by Provider: 06/03/22 18:18 History of Present Illness HPI narrative: The patient is a 22-year-old male with history of hydrocephalus, status post CLINICAL INFORMATICS EDUCATOR shunt. For the last 3 days, the patient has had periumbilical abdominal discomfort, constant in nature, waxing waning in intensity but always present, radiating to the left flank. Associated with nausea and vomiting, only 1 episode today, none yesterday. Does feel nauseated still however. Does have a cough which is nonproductive but does cause him to gag. Has had constipation for the last 3 days which has been treated with laxatives yesterday, resulting in this a bowel movement approximately 1 hour ago. Has had decreased oral intake. Prior to the abdominal pain, the patient did have fever vomiting and diarrhea during the past week. He has treated himself with [id number] and assets. He still has symptoms, especially the abdominal pain which brings him here for evaluation. No fevers currently. No rhinorrhea or nasal congestion. No chest pain. No dyspnea. No UTI symptoms. Related Data Allergies Allergy/AdvReac Type Severity Reaction Status Date / Time No Known Allergies Allergy Verified 06/03/22 18:04 Review of Systems Review of Systems: All systems reviewed & are unremarkable except as noted in HPI and below Constitutional: Constitutional: Reports as per HPI, Reports no additional constitutional complaints, Denies chills, Denies excessive sweating, Denies fatigue, Denies fever(s), Denies headache(s) and Denies weakness Eyes: Eyes: Reports as per HPI, Reports no additional eye complaints, Denies change in vision and Denies photophobia ENT: Reports system reviewed and no additional complaints, except as documented, Reports as per HPI, Denies dysphagia, Denies vertigo, Denies dizziness, Denies headache(s), Denies lip swelling, Denies nasal congestion, Denies sore throat, Denies throat swelling and Denies tongue swelling Cardiovascular: Cardiovascular: Reports as per HPI, Reports no additional cardiovascular complaints, Denies chest pain, Denies syncope, Denies rapid heart rate and Denies dyspnea Respiratory: Respiratory: Reports as per HPI, Reports no additional respiratory complaints, Denies chest congestion, Reports cough, Denies dyspnea and Denies wheezing Gastrointestinal: Gastrointestinal: Reports as per HPI, Reports no additional gastrointestinal complaints, Reports abdominal pain, Reports constipation, Denies dysphagia, Denies diarrhea, Reports nausea and Reports vomiting Genitourinary: Genitourinary: Reports as per HPI, Denies hematuria, Denies oliguria, Denies dysuria, Denies urinary frequency, Denies urinary incontinence and Denies urinary urgency Musculoskeletal: Musculoskeletal: Reports no additional musculoskeletal complaints, Denies back pain, Denies myalgias, Denies arthralgias, Denies joint swelling and Denies numbness Integumentary/Breasts: Skin/Breast: Reports system reviewed and no additional complaints, except as docu, Denies pruritus, Denies erythema, Denies rash and Denies skin ulcer Neurologic: Reports system reviewed and no additional complaints, except as documented, Reports as per HPI, Denies confusion, Denies vertigo, Denies dizziness, Denies syncope, Denies headache(s), Denies focal weakness, Denies numbness and Denies weakness Psychiatric: Psychiatric: Reports as per HPI, Denies anxiety, Denies confusion, Denies depression, Denies homicidal ideation and Denies suicidal ideation Endocrine: Endocrine: Reports no additional endocrine complaints, Denies excessive sweating, Denies fatigue, Denies polydipsia and Denies polyuria Hematologic/Lymphatic: Hematologic/Lymphatic: Reports no additional hematologic/lymphatic complaints, Denies easy bleeding and Denies easy bruising Allergic/Immunologic: Allergic/Immunologic: Reports no additional allergic/immunologic com
[2022-06-03 20:14] VITALS: BP 121/61; PULSE 88; RESP 20; TEMP 36.7; O2SAT 100
== END 2022-06-03 20:17 | disposition home or self-care (01) ==
PROVIDERS: Emergency Provider Emergency Medicine; PCP Family Medicine
DX: K52.9 Noninfective gastroenteritis and colitis, unspecified (principal)
CPT/HCPCS: 36415; 74177; 80053; 81001; 82150; 83690; 83735; 85025; 96361; 96374; 96375; 99284; A9270; J1200; J1885; J2405; J2765; J7030; Q9967

== ENCOUNTER 2024-03-07 02:49 | Emergency (ER) | payer OTHER, SELFPAY ==
--- NOTE | ~2024-03-07 | CT_ITS ---
CLINICAL INDICATION: Right lower quadrant pain COMPARISON: 06/03/2022. TECHNIQUE: Multiple contiguous axial images of the abdomen and pelvis were performed following the ad ministration of with 100 mL Omnipaque-350 intravenous contrast The dose-length product (DLP) was 198.83 mGy-cm. Automated exposure control and iterative reconstruction technique were employed. FINDINGS/OBSERVATIONS: Visualized lower thorax: The bilateral lung bases are clear. The heart is of normal size, without pericardial effusion. Liver: The liver enhances homogeneously. Gallbladder and biliary system: The gallbladder is minimally distended, and otherwise unremarkable. Pancreas: The pancreas enhances homogeneously without ductal dilatation. Spleen: The spleen enhances homogeneously and is not enlarged measuring 6 cm in longitudinal dimension. Kidneys: The bilateral kidneys enhance symmetrically without hydronephrosis or renal calculi. Adrenal glands: Unremarkable. Gastrointestinal tract: Trace fecal stasis within the colon. Ventriculoperitoneal shunt extends into the pelvis. Appendix: The air-filled appendix is of normal caliber (axial series, image 120). Vasculature: Unremarkable. Lymph nodes: No pathologically enlarged or morphologically suspicious lymph nodes within the retroperitoneum or at the root of the mesentery. Pelvic structures: The bladder is distended, and otherwise unremarkable. The prostate gland is not enlarged. Body wall and musculoskeletal: No significant degenerative disease within the lower thoracic or lumbosacral spine. IMPRESSION: Normal appendix. Ventriculoperitoneal shunt. Free fluid within the deep pelvis Reviewed, dictated and finalized at location A. SS NURSE
[2024-03-07 02:52] VITALS: BP 135/85; PULSE 103; RESP 18; TEMP 36.2; O2SAT 98
--- NOTE | 2024-03-07 03:08 | ED_ITS ---
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 No N/V or fevers. He had a BM yesterday. No diarrhea. Related Data Allergies Allergy/AdvReac Type Severity Reaction Status Date / Time No Known Allergies Allergy Verified 03/07/24 02:59 Review of Systems 2 Review of Systems: All systems reviewed & are unremarkable except as noted in HPI and below PMFSH Past Medical History Medical History Epigastric pain Hydrocephalus Surgical History Surgical History History of ventriculoperitoneal shunting Family History Family History Other No significant family history Social History Social History Smoking status: Never smoker Second hand tobacco smoke exposure: No Alcohol intake: never Substance use: never Substance use type: does not use Living arrangements: with family Gender identity (if verbalized by the patient): Male Spiritual care concerns: No Exam 2 Const: General: cooperative, healthy appearing, comfortable, no acute distress, well developed, alert, awake and Physically active O rientation/consciousness: oriented to person, oriented to place and oriented to time HENMT: Head: normal to inspection, normocephalic and atraumatic Ears: h earing grossly normal bilaterally and external ears normal Face/Nose/Sinus: N ormal external nose present Eyes: General: appearance normal, both eyes and all related structures P eriorbital: periorbital findings normal Sclera: sclerae normal Pupils: E qual, round and reactive pupils present Neck: Neck: normal visual inspection Chest: Chest palpation & inspection: normal inspection of the chest Resp: Effort & Inspection: normal respiratory effort, able to speak in complete sentences and no respiratory distress Cardio: Jugular venous distension: no JVD GI: Inspection: normal to inspection GI Palp: Yes Soft to palpation A uscultation: normal bowel sounds Other: TTP in the RLQ, superior to the iliac crest and positive obturator and psoas signs. Skin: General skin exam: normal color and no rashes or lesions noted Neuro: General: oriented to person, oriented to place and oriented to time Cranial nerves: Yes Equal, round and reactive pupils present Extrem: General: normal to inspection Course Course Emergency Course: Ordered labs, CT and morphine Labs showed minor leukocytosis at 13.3, unremarkable chemistries and UA CT showed ventriculoperitoneal shunt tubing, small volume free pelvic fluid and right lower quadrant appendix is normal. No acute findings within the abdomen or pelvis. He was feeling better upon reexamination at 0514 Vital Signs Vital signs: Vital Signs Temperature 97.1 F L 03/07/24 02:52 Pulse Rate 103 H 03/07/24 02:52 Respiratory Rate 18 03/07/24 02:52 Blood Pressure 135/85 03/07/24 02:52 Pulse Oximetry 98 03/07/24 02:52 Oxygen Delivery Room Air 03/07/24 02:52 Temperature 98.6 F 03/07/24 05:04 Pulse Rate 95 03/07/24 05:04 Respiratory Rate 18 03/07/24 05:04 Blood Pressure 110/66 03/07/24 05:04 Pulse Oximetry 99 03/07/24 05:04 Oxygen Delivery Room Air 03/07/24 05:04 Medical Decision Making Vital Signs Vital Signs: Vital Signs Temperature 97.1 F L 03/07/24 02:52 Pulse Rate 103 H 03/07/24 02:52 Respiratory Rate 18 03/07/24 02:52 Blood Pressure 135/85 03/07/24 02:52 Pulse Oximetry 98 03/07/24 02:52 Oxygen Delivery Room Air 03/07/24 02:52 Temperature 98.6 F 03/07/24 05:04 Pulse Rate 95 03/07/24 05:04 Respiratory Rate 18 03/07/24 05:04 Blood Pressure 110/66 03/07/24 05:04 Pulse Oximetry 99 03/07/24 05:04 Oxygen Delivery Room Air 03/07/24 05:04 Lab Data 03/07/24 03:20 03/07/24 03:20 Labs: Lab Results 03/07/24 Range/Units 03:20 WBC 13.3 H (4.8-10.8) K/mm3 RBC 5.16 (4.70-6.10) M/mm3 Hgb 15.1 (14.0-18.0) g/dL Hct 43.8 (40.0-54.0) % MCV 84.9 (78.0-102.0) fL MCH 29.3 (27.0-31.0) pg MCHC 34.5 (32-36) g/dL RDW 11.9 (11.6-14.4) % Plt Count 366 (150-420) K/mm3 MPV 8.7 (8.7-11.0) fl Immature Gran % (Auto) 0.4 H (0.0-0.0) % Neut % (Auto) 71.9 H (50.0-70.0) % Lymph % (Auto) 20.4 (18.0-42.0) % [place] % (Auto) 6.4 (2.0-11.0) % Eos % (Auto) 0.6 L (1.0-6.0) % Baso % (Auto) 0.3 (0.0-1.0) % Lymph # (Auto) 2.71 (1.10-4.50) K/mm3 [place] # (Auto) 0.85 (0.10-0.90) K/mm3 Eos # (Auto) 0.08 (0.02-0.50) K/mm3 Baso # (Auto) 0.04 (0.00-0.10) K/mm3 Abs Immat Gran (auto) 0.05 H (0.00-0.00) K/mm3 Absolute Neuts (auto) 9.53 H (1.70-7.20) K/mm3 Absolute Nucleated RBC 0.00 (0.00-0.00) K/mm3 Nucleated RBC % 0.0 (0-0.0) % PT 11.3 (9.50-12.1) Seconds INR 1.0 Sodium 143 (136-145) mmol/L Potassium 3.5 (3.5-5.1) mmol/L Chloride 103 (98-108) mmol/L Carbon Dioxide 27 (21-32) mmol/L Anion Gap 13 H (4-12) mmol/L BUN 14 (7-18) mg/dL Creatinine 0.93 (0.70-1.30) mg/dL Estim Creat Clear Calc 109 ml/min Estimated GFR > 60 (59 - ) Glucose 98 (70-99) mg/dL Calculated Osmolality 296 H (285-295) mOsm/kg Calcium 8.9 (8.5-10.1) mg/dL Total Bilirubin 0.8 (0.00-1.00) mg/dL AST 22 (15-37) U/L ALT 42 (16-63) U/L Alkaline Phosphatase 102 (46-116) U/L C-Reactive Protein < 0.1 (0.0-0.9) mg/dL Total Protein 7.8 (6.4-8.2) g/dL Albumin 4.8 (3.4-5.0) g/dL Lipase 24 (16-77) U/L Urine Color Light yellow (Yellow) Urine Appearance Clear (Clear) Urine pH 7.0 (5.0-8.0) Ur Specific [place] 1.025 H (1.010-1.020) Urine Protein Negative (Negative) Urine Glucose (UA) Negative (Negative) Urine Ketones 2+ H (Negative) Ur Blood (Man) Negative (Negative) Urine Nitrate Negative (Negative) Urine Bilirubin Negative (Negative) Urine Urobilinogen 0.2 (0.2-1.0) mg/dL Leukocyte Esterase Rfl Negative (Negative) CONSTANZA/UL Discharge Plan Discharge Clinical Impression: Abdominal pain Patient Disposition: Home, Self-Care Condition: Stable Instructions: Abdominal Pain (ED) Patient Language: German Prescriptions: New dicyclomine 20 mg tablet 20 mg PO TID Qty: 20 0RF Follow-up/Referrals: Igor Amador MD [Primary Care Provider] - Stand Alone Forms: Work/School Release IP
--- NOTE | 2024-03-07 03:09 | PC.NURSE ---
Called lab to let Becky know that lab orders have been placed.
[2024-03-07] MEDS: DICYCLOMINE HCL INJ 20 MG/2 ML VIAL IM (03:21)
[2024-03-07 03:26] LABS: Add Urine Microscopic? NO; Appearance Urine Clear (Clear); Basophils Absolute Auto 0.04 K/mm3 (0.00-0.10); Basophils Percent Auto 0.3 % (0.0-1.0); Bilirubin Urine Negative (Negative); Blood Urine Negative (Negative); Color Urine Light Yellow (Yellow); Eosinophils Absolute Auto 0.08 K/mm3 (0.02-0.50); Eosinophils Percent Auto 0.6 % (1.0-6.0); Glucose Urine UA Negative (Negative); Hematocrit 43.8 % (40.0-54.0); Hemoglobin 15.1 g/dL (14.0-18.0); Immature Granulocyte Absolute 0.05 K/mm3 (0.00-0.00); Immature Granulocyte Percent A 0.4 % (0.0-0.0); Ketones Urine 2+ (Negative); Leukocyte Esterase Ur Negative LEU/UL (Negative); Lymphocytes Absolute Auto 2.71 K/mm3 (1.10-4.50); Lymphocytes Percent Auto 20.4 % (18.0-42.0); Mean Corpuscular HGB Conc 34.5 g/dL (32-36); Mean Corpuscular Hemoglobin 29.3 pg (27.0-31.0); Mean Corpuscular Volume 84.9 fL (78.0-102.0); Mean Platelet Volume 8.7 fl (8.7-11.0); Monocytes Absolute Auto 0.85 K/mm3 (0.10-0.90); Monocytes Percent Auto 6.4 % (2.0-11.0); Neutrophils Absolute Auto 9.53 K/mm3 (1.70-7.20); Neutrophils Percent Auto 71.9 % (50.0-70.0); Nitrate Urine Negative (Negative); Platelet Count Result 366 K/mm3 (150-420); Protein Urine Negative (Negative); Red Blood Count 5.16 M/mm3 (4.70-6.10); Red Cell Distribution Width 11.9 % (11.6-14.4); Specific Grav Ur 1.025 (1.010-1.020); Urobilinogen Urine 0.2 mg/dL (0.2-1.0); White Blood Count 13.3 K/mm3 (4.8-10.8)
--- NOTE | 2024-03-07 03:32 | PC.NURSE ---
Pt ready for CT.
[2024-03-07 03:36] LABS: Prothrombin Time 11.3 Seconds (9.50-12.1)
[2024-03-07 03:40] LABS: Alanine Aminotransferase 42 U/L (16-63); Albumin Level 4.8 g/dL (3.4-5.0); Alkaline Phosphatase 102 U/L (46-116); Anion Gap 13 mmol/L (4-12); Aspartate Amino Transferase 22 U/L (15-37); Bilirubin,Total 0.8 mg/dL (0.00-1.00); Blood Urea Nitrogen 14 mg/dL (7-18); Calcium 8.9 mg/dL (8.5-10.1); Carbon Dioxide 27 mmol/L (21-32); Chloride 103 mmol/L (98-108); Estimated CRCL calculation 109 ml/min; Estimated Glomerular Filt Rate > 60; Glucose 98 mg/dL (70-99); Lipase 24 U/L (16-77); Osmolality Calculated 296 mOsm/kg (285-295); Potassium 3.5 mmol/L (3.5-5.1); Sodium 143 mmol/L (136-145); Total Protein 7.8 g/dL (6.4-8.2)
[2024-03-07 03:43] LABS: CRP < 0.1 mg/dL (0.0-0.9)
[2024-03-07 05:04] VITALS: BP 110/66; PULSE 95; RESP 18; TEMP 37; O2SAT 99
== END 2024-03-07 05:30 | disposition home or self-care (01) ==
PROVIDERS: Emergency Provider Family Medicine; PCP Family Medicine
DX: R10.31 Right lower quadrant pain (principal)
CPT/HCPCS: 36415; 74177; 80053; 81003; 83690; 85025; 85610; 86140; 96372; 99284; J0500; Q9967